=== PATIENT | male | born 1975 | race Caucasian/White ===

== ENCOUNTER 2022-07-05 14:59 | Emergency (ER) | payer BC, OTHER ==
[~2022-07-05] VITALS: Ht 170.2 cm; Wt 74.3 kg
[2022-07-05 15:15] VITALS: BP 140/98
--- NOTE | 2022-07-05 15:42 | Diagnostic Imaging Report ---
PROCEDURE: CT head without contrast. TECHNIQUE: Multiple contiguous axial images were obtained through the brain without the use of intravenous contrast. Auto Exposure Controls were utilized during the CT exam to meet ALARA standards for radiation dose reduction. DATE: July 05, 2022. COMPARISON: None. INDICATION: 46-year-old male, headache. Hit head yesterday. FINDINGS: There is no identified skull fracture. The ventricles and cerebral spinal fluid spaces are of normal size and configuration for the patient's age. There is no mass effect or midline shift. There is no acute intracranial hemorrhage. There is no abnormal extra-axial fluid collection. The visualized portions of the paranasal sinuses, mastoid air cells and middle ears are well aerated. IMPRESSION: 1. No identified acute intracranial abnormality. Dictated by: Dictated on workstation # [id number]
--- NOTE | 2022-07-05 15:56 | ED Headache ---
General Chief Complaint: Head/Cervical Problems Stated Complaint: HEAD INJ; FRANCIS Nursing Triage Note: Patient reports he held his breath undewater for an extended period of time on Monday, states when he came up and out of the water he had an intense headache behind his left eye that resolved fairly quickly. He states he was hit in the head by a tree branch yesterday, states he did not lose consciousness, but has had intermittent sharp pains behind his left eye since the injury. Source: patient History of Present Illness Date Seen by Provider: July 05, 2022 Time Seen by Provider: 15:41 Initial Comments 46-year-old male presenting with complaints of left-sided headache. On Monday he had been working on a pool and felt like he had held his breath underwater for an extended period of time. When he finally was out of the pool he felt li ke he had a lot of pressure and stabbing pain behind his left eye. That did finally calm down. However yesterday he was hit in the head by a tree branch more on the occiput aspect. He had tried taking some Aleve at home without any significant improvement. He denies having any loss of consciousness, nausea, vomiting, change in vision. He was concerned that he might be having bleeding because he had so much pressure in his head. Timing/Duration: increasing (Over the last 4-5 days and worse since hit in the head yesterday) Severity/Quality: moderate Location: frontal, occipital, parietal Prior Headaches/Recent Trauma: head trauma < 24 hrs ago Modifying Factors: worse with movement Associated Symptoms: No confusion, No fatigue, No facial pain, No fever/chills, No flushing, No loss of consciousness, No nausea/vomiting, No nasal congestion, No nasal drainage, No numbness in legs/feet, No seizures, No sinus infection, No stiff neck, No vision changes, No weakness Allergies and Home Medications Allergies Coded Allergies: iodine (Verified Allergy, Unknown, 07/05/22) Patient Home Medication List Home Medication List Reviewed: Yes Review of Systems Review of Systems Constitutional: No chills, No dizziness, No fever Eyes: Denies Blurred Vision, Denies Photophobia, Denies Vision Changes Ears, Nose, Mouth, Throat: denies ear pain, denies ear discharge, denies nose pain, denies nose discharge, denies epistaxis Respiratory: No cough, No short of breath Cardiovascular: No chest pain Gastrointestinal: No nausea, No vomiting Genitourinary: no symptoms reported Musculoskeletal: no symptoms reported; No neck pain Skin: No change in color; lumps (This swelling to the left occiput since being hit in the head yesterday) Psychiatric/Neurological: See HPI; Denies Numbness, Denies Paresthesia Past Zxextkf-Flrxnj-Lhbtys Hx Patient Social History Tobacco Use?: Yes Tobacco type used: Cigarettes Smoking Status: Current Everyday Smoker Substance use?: No Alcohol Use?: No Pt feels they are or have been: No Physical Exam Vital Signs Vital Signs - First Documented 07/05/22 15:15 Temp 35.7 Pulse 72 Resp 18 B/P (MAP) 140/98 (112) Pulse Ox 98 O2 Delivery Room Air Capillary Refill : Less Than 3 Seconds Height, Weight, BMI Height: '" Weight: lbs. oz. kg; 25.00 BMI Method: General Appearance: WD/WN, no apparent distress HEENT: PERRL/EOMI, normal ENT inspection, TMs normal, pharynx normal; No photophobia; other (Negative tavarez sign, negative raccoon sign, no CSF otorrhea, no CSF rhinorrhea, no hemotympanums.) Neck: non-tender, full range of motion, supple, normal inspection Cardiovascular: normal peripheral pulses, regular rate, rhythm Respiratory: chest non-tender, lungs clear, normal breath sounds Psychiatric: alert, oriented x 3 Crainal Nerves: normal hearing, normal speech, PERRL Coordination/Gait: normal gait Motor/Sensory: no motor deficit, no sensory deficit Skin: warm/dry; No ecchymosis; other (Scalp hematoma to the left occiput without crepitus or step off) Progress/Results/Core Measures Results/Orders My Orders Orders - CHRISTOPHER MACIAS MD Ct Head Wo (07/05/22 15:15) Vital Signs/I&O 07/05/22 15:15 Temp 35.7 Pulse 72 Resp 18 B/P (MAP) 140/98 (112) Pulse Ox 98 O2 Delivery Room Air Blood Pressure Mean: 112 Progress Progress Note #1: Progress Note CT scan of the head without IV contrast obtained to evaluate for possible intracranial hemorrhage or skull fracture. Progress Note #2: Progress Note I reviewed the radiologist CT report and they did not appreciate any acute intracranial hemorrhage or skull fracture. No mass or edema affect. I reviewed the findings and results with the patient. He was reassured and counseled on about management of headache and scalp hematoma. He said that his main concern was that he might have bleeding around his brain or in his head and he was happy to find out that he did not have those things going on. We will continue with symptomatic care and follow-up with the clinic if having continued concerns. Diagnostic Imaging Diagonstic Imaging: CT Plain Films/CT/US/NM/MRI: head Comments [facility], [place] NAME: NANCI MURPHY [facility] REC#: [id number] PT STATUS: REG ER : 1975 PHYSICIAN: CHRISTOPHER MACIAS MD ADMIT DATE: 07/05/22/ER FS Signed Date of Exam:07/05/22 CT HEAD WO PROCEDURE: CT head without contrast. TECHNIQUE: Multiple contiguous axial images were obtained through the brain without the use of intravenous contrast. Auto Exposure Controls were utilized during the CT exam to meet ALARA standards for radiation dose reduction. DATE: July 05, 2022. COMPARISON: None. INDICATION: 46-year-old male, headache. Hit head yesterday. FINDINGS: There is no identified skull fracture. The ventricles and cerebral spinal fluid spaces are of normal size and configuration for the patient's age. There is no mass effect or midline shift. There is no acute intracranial hemorrhage. There is no abnormal extra-axial fluid collection. The visualized portions of the paranasal sinuses, mastoid air cells and middle ears are well aerated. IMPRESSION: 1. No identified acute intracranial abnormality. Dictated by: Dictated on workstation # [id number] Dict: 07/05/22 1529 Trans: 07/05/22 1558 [facility] [id number] Interpreted by: LALO VTIAL MD Electronically signed by: LALO VITAL MD 07/05/22 1558 Reviewed: Reviewed by Me Departure Impression Primary Impression: Contusion of scalp, initial encounter Additional Impression: Left-sided headache Disposition: 01 HOME, SELF-CARE Condition: Stable Departure-Patient Inst. Decision time for Depature: 15:59 Referrals: NO,LOCAL PHYSICIAN (PCP) Primary Care Physician [facility] Patient Instructions: Minor Head Injury, Adult ED, Minor Contusion ED, Headache, Adult ED, Home Headache Remedies Add. Discharge Instructions: Try to stay well-hydrated and drink plenty of fluids. You could try applying ice 15 to 20 minutes every few hours to help with the pain and swelling on the scalp from where you were hit. There is no evidence of bleeding or skull fractures on the imaging. If your headaches persist and or not improving check back with the clinic. You could call [facility] at [phone] to get established and follow-up. All discharge instructions reviewed with patient and/or family. Voiced underst anding. CHRISTOPHER MACIAS MD July 05, 2022 15:56
== END 2022-07-05 16:01 | disposition home or self-care (01) ==
LOC: ER FS 15:00
DX: S00.03XA Contusion of scalp, initial encounter (principal); F17.210 Nicotine dependence, cigarettes, uncomplicated; W22.09XA Striking against other stationary object, initial encounter
CPT/HCPCS: 70450